=== PATIENT | male | born 1965 | race Caucasian/White ===

== ENCOUNTER → 2018-04-07 | Outpatient (CLI) | payer MEDICARE, BC | LOC: M.LAB 06:45 | DX: M19.019 Primary osteoarthritis, unspecified shoulder (principal); R51 Headache; R63.4 Abnormal weight loss ==

== ENCOUNTER → 2018-05-23 | Outpatient (CLI) | payer MEDICARE, BC ==
--- NOTE | 2018-05-24 18:47 | SLEEP ---
[address] [address] SLEEP STUDY REPORT Name: WU WOOD Room: [facility]#: [id number] Admission: 05/23/18 Attend Phys: Annabelle Jack DO Discharge: Date of : 61 Report #: [id number] THIS REPORT FOR: //name// CC: Annabelle Jack FAM unknown This study has been reviewed in its entirety by a board certified sleep specialist DATE OF SERVICE: 05/23/2018 SLEEP STUDY ATTENDING PHYSICIAN: Dr. Leanne Jack. The patient is 52 years old who weighs 240 pounds and is 73 inches tall with a BMI of 31.7. The patient's [place] score was 6. The patient underwent a diagnostic sleep study at [facility]. During the night study, the patient spent 361 minutes in bed and slept for 283 minutes with a sleep efficiency of 78%. Sleep latency was 11.8 minutes with a REM latency of 83.8 minutes. Overall, sleep architecture showed normal stage 1 and stage 2 sleep, increased slow wave sleep and normal REM sleep. During the night of the study, the patient had 2 obstructive apneas, no mixed or central apneas and 6 hypopneas. The patient's apnea-hypopnea index for the entire night was 1.7 per hour and a REM index of 4.1 per hour. The patient did not have supine sleep. EKG monitoring revealed an average heart rate of 49 beats per minute with a maximum of 60 beats per minute. No sustained arrhythmias were observed. PLMS were seen at an index of 0.8 per hour and 0.2 per hour caused EEG arousals. Nocturnal oximetry study revealed an average oxygen saturation of 95% with a lowest of 91%. Due to low AHI, the patient did not meet the split night criteria for CPAP initiation. IMPRESSION: 1. No clinically significant sleep disorder breathing. The patient's AHI for the entire night was 1.7 per hour. 2. No clinically significant nocturnal hypoxia. 3. No clinically significant periodic [place] [address] SLEEP STUDY REPORT Name: WU WOOD Room: [facility]#: [id number] Admission: 05/23/18 Attend Phys: Annabelle Jack DO Discharge: Date of : 61 Report #: [id number] RECOMMENDATIONS: 1. The patient did not meet the criteria for CPAP initiation due to very low AHI. 2. Weight loss is advised. 3. Avoid [employer] depressants. <ELECTRONICALLY SIGNED> By: Kvng Hayden MD 05/24/18 [id number] Hayden MD /nt
== END ==
LOC: M.SLEEPLAB 02-07 21:00
DX: R51 Headache (principal); M19.019 Primary osteoarthritis, unspecified shoulder; R63.4 Abnormal weight loss